=== PATIENT | male | born 1945 | race Caucasian/White ===

== ENCOUNTER → 2023-10-11 10:00 | Outpatient (REF) | payer MEDICARE, SELFPAY | LOC: CLAB 10:00 | PROVIDERS: ATTENDING PHYSICIAN Otolaryngology | DX: J32.4 Chronic pansinusitis (principal) | CPT/HCPCS: 88304 ==

== ENCOUNTER 2023-10-30 23:14 | Inpatient (IN) | payer MEDICARE, SELFPAY ==
[2023-10-30] VITALS (9 sets, daily range): BP systolic 131–150; BP diastolic 70–89; BMI 27.4
[2023-10-30 22:10] LABS: Glucose - Point of Care 100 mg/dl (70-99)
--- NOTE | 2023-10-30 22:19 | ED.GENMED ---
History of Present Illness
General
Chief Complaint: Numbness
Source: patient and ambulance crew
Exam Limitations: none
Time Seen by Provider: 10/30/23 22:11
Nursing documentation reviewed up to this point in time: agreed with
History of Present Illness
History of Present Illness:
78-year-old male presents with left facial weakness onset at 9 PM EMS was called brought here by evaluation with a left facial weakness he has a drift and weakness of his left arm and left leg no speech abnormality stroke alert was called blood
sugar was noted he takes gabapentin and Lamictal cannot tell me why, his bladder cancer gets in her bladder chemo last a few weeks ago not on any blood thinners
Past History
Past History
ED Past Medical History: Other (Hypercholesterolemia takes gabapentin Lamictal Remeron multivitamin omeprazole Mysoline simvastatin Flomax vitamin D clonazepam finasteride Flonase)
Social History
Tobacco: Non-smoker
Alcohol: None
Personal:
Phy Exam
Physical Exam
Physical Exam:
Physical Exam
General: no apparent distress, not acutely ill
Neck: No tongue bite
Heart: s1/s2 regular rate and rhythm, no murmur. equal radial pulses.
Lungs: no acute respiratory distress. clear bilaterally
Abdomen: Nontender
Neuro: alert and oriented. See NIH
Skin: no rash
Psychiatric: cooperative
Extremities: no edema.
Scores
NIH Stroke Score
Level of Consciousness: 0 - Alert
LOC Questions: 0-Answers both correctly
LOC Commands: 0-Performs both correctly
Best Horizontal Gaze: 0-Normal
Visual Kwok: 0=Normal, no visual loss
Facial Palsy: 0=Normal, symmetrical
Motor - Right Arm: 0=No drift 10 seconds
Motor - Left Arm: 2=Partial vs. gravity
Motor - Right Le-No drift 5 seconds
Motor - Left Le-Partial vs. gravity
Limb Ataxia: 1-Present in one limb
Sensation: 1-Mild loss
Best Language: 0-No aphasia
Dysarthria: 0-Normal
Extinction and Inattention: 0-No abnormality
Total Score:: 6
Course
Orders/Labs/Results
Orders:
Orders
10/30/23 22:11
CT Head W/o Cont STROKE ALERT Urgent
Comment:
Reason For Exam: keft sided weakness
CT Head/Neck Ang STROKE ALERT Urgent
Comment:
Reason For Exam: keft sided weakenss
Bedside Glucose- Treatment ONCE
Cardiac Monitoring- Treatment ONCE
10/30/23 22:12
Electrocardiogram (*1) Stat
Reason for Study: Other
Other Reason for Exam: neuro symptoms
EKG- Treatment ONCE
10/30/23 22:15
Complete Blood Count/With Diff Urgent
Comprehensive Metabolic Panel Urgent
Erythrocyte Sed Rate Urgent
PTT Urgent
Prothrombin Time Urgent
10/30/23 22:32
Tenecteplase [Tnkase] 20 mg Syringe [Syringe Non-Pump] 0 ml IV NOW
Provider explained risk/benefits to patient &/or caregiver?: Yes
Blood pressure: 136/74
Abnormal Lab Results
10/30/23 10/30/23
22:08 22:15
RBC 4.50 L 10^6/uL
(4.70-6.10)
Glucose 113 H mg/dl
(70-99)
POC Glucose 100 H mg/dl
(70-99)
10/30/23 22:15
10/30/23 22:15
Vital Signs
Initial and Last Documented VS:
Initial Vital Signs
Temp Pulse Resp BP Pulse Ox
98.6 F 77 18 136/74 95
10/30/23 22:02 10/30/23 22:02 10/30/23 22:02 10/30/23 22:02 10/30/23 22:02
Last Documented Vital Signs
Temp Pulse Resp BP Pulse Ox
98.6 F 64 23 136/74 97
10/30/23 22:02 10/30/23 22:15 10/30/23 22:15 10/30/23 22:05 10/30/23 22:15
MDM/Problems Addressed
Differential Diagnosis Includes:
Stroke seizure intracerebral hemorrhage Baldemar's paralysis
Chronic conditions affecting care: Psychiatric illness
Acute Exacerbation and/or Progression of Chronic Illness: Psychiatric illness
*Radiology
Radiology exam reviewed: other (Verbal from vision)
*Pulse Oximetry
Patient hypoxic: no
*EKG
Interpreted by ED Provider?: Yes
Interpretation: normal
Comparison EKG: no comparison EKG present
Heart Rate: 78
Rate: normal
Rhythm: sinus
Ischemia: non-specific ST changes
*Drafter Geophysical Interpretation
Rate: normal
Interpretation: normal
Heart Rate: 78
Rhythm: sinus
*Critical Care Note
Total Time (30-74mins, 75-104mins- exclusive of procedures): 32
Data Reviewed
Source: patient and ambulance crew
Update Note
Update Note:
Reviewed with neurology
CT reviewed with vision radiology no abnormality angiogram is pending
ED Attending Note
-
Portions of this chart may have been created with voice recognition software.� Occasional wrong word or��sound alike� substitutions may have occurred due to the inherent limitations of voice recognition software.
Discharge Plan
Departure
Patient Disposition: Admit
Date of Disposition: 10/30/23
Time of Disposition: 22:40
Admit to: ICU
Presentation/result/management discussed w/ accepting MD/DO: Hospitalist
Patient with high blood pressure during this ER visit?: No
Condition: Fair
Covid-19: Not Applicable
Discharge Problem:
Acute CVA (cerebrovascular accident)
Interventions
Interventions:
*Risk Screen - Suicide Last Done: 10/30/23 22:02
*General Assessment Last Done: 10/30/23 22:02
*Neglect/Abuse Screening Last Done: 10/30/23 22:02
ED- Fall Risk Assessment Last Done: 10/30/23 22:10
ED- Neurological Assessment Last Done: 10/30/23 22:10
Discharge Date and Time
Print Language: MOHAWK
[2023-10-30 22:23] LABS: % Basophils 0.6 % (0-2); % Eosinophils 4.4 % (0-6); % Immature Granulocytes 0.4 % (0-0.5); % Lymphocytes 28.2 % (20.5-51.1); % Monocytes 8.6 % (1.7-9.3); % Neutrophils 57.8 % (42.2-75.2); Absolute Eosinophils 0.2 10^3/uL (0-0.7); Absolute Lymphocytes 1.4 10^3/uL (1.2-3.4); Absolute Monocytes 0.4 10^3/uL (0.1-0.6); Absolute Neutrophils 2.8 10^3/uL (1.4-6.5); Hematocrit 39.6 % (39.0-52.0); Hemoglobin 13.9 g/dL (13.0-18.0); Mean Corp Hgb Conc. 35.1 g/dL (33.0-37.0); Mean Corpuscular Hgb 30.9 pg (27.0-31.0); Mean Platelet Volume 9.6 fL (7.4-10.4); Nucleated Red Blood Cells % 0 % (-); Platelet Count 158 10^3/uL (130-400); Red Cell Dist. Width 13.9 % (11.5-14.5); White Blood Cell Count 4.8 10^3/uL (4.8-10.8)
[2023-10-30 22:28] LABS: Erythrocyte Sed Rate 12 mm/hour (0-20)
[2023-10-30 22:32] LABS: INR 1.03; PT 13.3 Sec (11.4-14.6)
[2023-10-30 22:33] LABS: ALT (SGPT) 20 U/L (0-50); APTT 28.3 Sec (23.4-35.0); AST (SGOT) 28 U/L (17-59); Albumin 4.8 g/dl (3.5-5.0); Alkaline Phosphatase 89 U/L (38-126); Blood Urea Nitrogen 14 mg/dl (9-20); Calcium 9.5 mg/dl (8.4-10.2); Carbon Dioxide 25 mmol/L (22-30); Chloride 107 mmol/L (98-107); Glucose 113 mg/dl (70-99); Potassium 3.8 mmol/L (3.5-5.1); Sodium 140 mmol/L (135-145); Total Bilirubin 0.5 mg/dl (0.2-1.3)
[2023-10-30] MEDS: TNKASE 4 MG IV (22:45)
[2023-10-30 22:49] LABS: Estimated Creatinine Clearance 72 ml/min; Total Protein 6.8 g/dl (6.3-8.2); eGFR > 60.00
[2023-10-30] MEDS: FLUSH (NSS) 1 FLUSH IV (23:08)
--- NOTE | 2023-10-30 23:10 | W.PN.UPDATE ---
Update Note
Progress Note Update
I saw and examined the patient.
The PA's note was reviewed and I agree with the H&P dated 10/30/2023.
78yo M with PMH HLD, Bladder Ca on Intravesical Chemotherapy, BPH, GERD, Essential Tremor, Anxiety/Depression/Bipolar presents to ER with stroke like symptoms. Pt states around 8:30pm he went upstairs to do paperwork when he suddenly felt left
sided facial numbness. Symptoms expanded to his left hand and left leg with associated numbness/tingling and and mild weakness with a 'cold sensation' in his left arm. Denies history of strokes or seizures in past. Denies migraine headaches. Denies
recurrence in past. Denies fever, chills, recent ilness, cp, palps, wheezing, cough, sob, abd pain, n/v/d/c, dysuria, calf or leg pain.
ER course: Pt presents with BP 150/72 at peak, other V.S.S. Basic labs wnl. CT brain (-). CTA H/N: No LVO/LVS. S/P TNK in ER.
PMH: As above
SHx: Cholecystectomy, Sinus Surgery, Hiatal Hernia x 2, Inguinal Hernia b/l, TURBT
SocHx: Denies T/A/D.
Physical Exam:
Well appearing. Comfortable. Following commands
NCAT. MMM. Neck Supple
RRR, +S1/S2, No M/R/G
CTAB, no w/r/r
Soft/NT/ND, +BS
Pupils 3mm equal and reactive. No nystagmus. Tongue and uvula midline. Mild left facial droop. MSK LUE 4/5. MSK RUE 5/5. +LLE Drift. MSK LLE 3/5 MSK. MSK RLE 5/5.
AAOx3. Normal affect.
A/P:
Stroke Like Symptoms
- Pt presents to left facial numbness, sight left facial droop, Mild LLE>LUE weakness; onset around 8:30pm
- Risk factors include Bladder Ca and HLD
- CT brain and CTA H/N without acute findings
- S/P TNK. Admit to ICU
- Permissive HTN, Goal BP <180/105; prn labetalol.
- Q1h neurochecks
- MRI ordered
- Check Lipids/A1C. Increase statin to high intensity.
- Check TSH/B12/UA for completeness
- Neuro consult. PT/OT
HLD - Check Lipid panel. Increase statin to high intensity.
Urinary Retention - Bladder Scan +700cc. Straight cath and continue meds as below. Follow up UA.
Bladder Ca / BPH - Follows at [facility] receiving intravesical chemo 1x monthly, last received 10/19/2023. Pt known to Dr. Gloria. Continue finasteride/flomax.
GERD - PPI
Essential Tremor - Continue gabapentin and primidone.
Anxiety/Depression/Bipolar - Stable on home Remeron, Gabapentin, Lamictal, Lexapro, Klonipin
Code Status: Full Code
DVT PPx: SCDs, chemical ppx after 24 hrs.
Diet: Lipid Lowering
--- NOTE | 2023-10-30 23:24 | HPS.HSE ---
Addendum entered and electronically signed by Luca Conrad DO 10/31/23 06:37:
I saw and examined the patient.
The PAs's note was reviewed and I agree with plan as below; see Update Note dated 10/31/23 for attending attestation.
Original Note:
Family Physician
-
Family Physician: Baldemar Ralph MD
Chief Complaint
-
Left sided numbness
History of Present Illness
Patient is a 74 y/o male past medical history of hyperlipidemia, bipolar disorder and bladder cancer who presents with left sided numbness and weakness. Patient developed acute onset of left facial numbness around 9pm. Patient reports symptoms
worsened to include numbness of the left hand. He reports symptoms continued to worsened when he noted his whole left sided was feeling numb and felt weak. He denies any difficulty with speech. He denies prior history of stroke.
Medical History
Past Medical History
Past Medical History: Reports Other
Additional Past Medical History:
Hyperlipidemia
Anxiety/Bipolar
BPH
GERD
Essential Tremor
Bladder Cancer s/p TURBT, currently receiving intravesicle chemo
Past Surgical History: Reports Other
Additional Past Surgical History:
TURBT x 2
Cholecystectomy
Hernia Repair
Social History
Tobacco: Non-smoker
Alcohol: None
Personal:
Living: With Family
Family History
Family History: Not pertinent
Allergies / Home Medications
Allergies reflects when Allergies were last updated in [email or web address].
Home Medications with original date entered in [email or web address]
Allergy/Medication List:
Allergies
Allergy/AdvReac Type Severity Reaction Status Date / Time
sertraline [From Zoloft] AdvReac Increased Verified 10/30/23 23:18
Tremors /
EPS
Home Medications
cholecalciferol (vitamin D3) 25 mcg (1,000 unit) tablet (Vitamin D3) 25 mcg PO DAILY 10/30/23
clonazepam 0.5 mg tablet 0.25 mg PO BID 10/30/23
escitalopram oxalate 10 mg tablet 10 mg PO DAILY 10/30/23
finasteride 5 mg tablet 5 mg PO DAILY 10/30/23
fluticasone propionate 50 mcg/actuation nasal spray,suspension 2 spray intranasal Q12H 10/30/23
gabapentin 400 mg capsule 400 mg PO QID 10/30/23
lamotrigine 200 mg tablet 200 mg PO HS 10/30/23
mirtazapine 15 mg tablet 15 mg PO HS 10/30/23
multivitamin 1 tab PO DAILY 10/30/23
omeprazole 40 mg capsule,delayed release 40 mg PO DAILY 10/30/23
primidone 250 mg tablet 250 mg PO HS 10/30/23
simvastatin 20 mg tablet 20 mg PO HS 10/30/23
tamsulosin 0.4 mg capsule 0.4 mg PO BID 10/30/23
Review of Systems
-
A 12 point ROS was completed and negative except as noted: Yes
Constitutional: Denies Fever or Chills
Respiratory: Denies Cough or Trouble Breathing
Cardiac: Denies Chest Pain or Palpitations
Abdomen/GI: Denies Abdominal Pain, Nausea, Vomiting or Diarrhea
Physical Exam
Vital Signs
Vital Signs
Temp Pulse Resp BP Pulse Ox
98.6 F 65 19 131/89 95
10/30/23 22:02 10/30/23 23:15 10/30/23 23:15 10/30/23 23:15 10/30/23 23:00
Physical Exam
General: Comfortable and Conversant
HEENT: Anicteric and Moist mucous membranes
Respiratory: Clear and Non Labored Respirations
Cardiac: S1/S2 and Regular Rhythm
GI: Soft and Non Tender
Rectal: Deferred by Provider
Musculoskeletal: No Clubbing, No Cyanosis and No Edema
Skin: Warm and Dry
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
Laboratory Results
-
10/30/23 22:15
10/30/23 22:15
Laboratory Results
PT 13.3 Sec (11.4-14.6) 10/30/23 22:15
INR 1.03 10/30/23 22:15
APTT 28.3 Sec (23.4-35.0) 10/30/23 22:15
Total Bilirubin 0.5 mg/dl (0.2-1.3) 10/30/23 22:15
AST 28 U/L (17-59) 10/30/23 22:15
ALT 20 U/L (0-50) 10/30/23 22:15
Alkaline Phosphatase 89 U/L (38-126) 10/30/23 22:15
Data Reviewed
-
CT Scan: Report Reviewed by me
Lab Data: Labs Reviewed by me
Impression/Plan
-
Acute Left Sided Weakness, high clinical concern for Acute Stroke
-Admit to ICU post TNK
-Consult Neurology
-Check Brain MRI 24 hours post-TNK
-Continue TNK precautions
-Allow permissive hypertension with labetalol prn for BP >180/105
-Check FLP and HgbA1c
Urinary Retention
-Continue bladder scans with prn straight cath
-Continue tamsulosin and finasteride
Hyperlipidemia
-Increase statin to Lipitor 40mg
Anxiety/Bipolar Disorder
-Continue Clonazepam, lamotrigine, escitalopram and mirtazapine
GERD
-Continue Protonix
Essential Tremor
-Continue gabapentin and primidone
Bladder Cancer s/p TURBT, currently receiving intravesical chemo
DVT proph: SCDs
Code Status: Full Code
[2023-10-31] VITALS (42 sets, daily range): BP systolic 105–152; BP diastolic 54–82; BMI 27.2
[2023-10-31 00:07] LABS: Urine Albumin Negative (Neg - Trace); Urine Bilirubin Negative (Negative); Urine Character Clear (Clear); Urine Color Straw; Urine Glucose Negative (Negative); Urine Ketone Negative (Negative); Urine Leukocyte Negative (Negative); Urine Nitrite Negative (Negative); Urine Occult Blood Negative (Negative); Urine Urobilinogen Negative (Neg - 1+)
--- NOTE | 2023-10-31 01:36 | PTCARENOTE ---
Received pt to ICU 3370 from ED via stretcher. Pt. AAOx3, MELÉNDEZ but weak LUE and LLE (4/5 strength). Mild sensation loss to L face, LUE and LLE. Reports numbness in L side of face, which is unchanged from prior. Reports blurry vision in L eye when he
covers his R eye. NIH handoff w/ ED RN. NIH = 3. SR on tele, HR 50-60s. BP 140s/60s. + pulses, no edema. Afebrile. SCDs on. On RA, lungs CTA. Spo2 97%. + bowel sounds. Was straight cath'd in ED, urinal at bedside. Skin c/d/i. R W #20 and L AC #18
patent and capped. Monitoring closely
Family at bedside- questions answered
--- NOTE | 2023-10-31 04:58 | PTCARENOTE ---
30 minute neuro checks ongoing. Improvement noted in LUE and LLE strength- now 07/31. Pt. reports increased sensation, especially in L face and L face tingling is improving. Pt. in good spirits. Has not slept all night. Resting now. Labs drawn
[2023-10-31 05:00] LABS: Hematocrit 34.3 % (39.0-52.0); Hemoglobin 12.2 g/dL (13.0-18.0); Mean Corp Hgb Conc. 35.6 g/dL (33.0-37.0); Mean Corpuscular Hgb 31.1 pg (27.0-31.0); Mean Corpuscular Volume 87.5 fL (80.0-94.0); Mean Platelet Volume 10.2 fL (7.4-10.4); Platelet Count 143 10^3/uL (130-400); Red Blood Cell Count 3.92 10^6/uL (4.70-6.10); White Blood Cell Count 4.6 10^3/uL (4.8-10.8)
[2023-10-31 05:15] LABS: INR 1.05; PT 13.5 Sec (11.4-14.6)
[2023-10-31 05:16] LABS: APTT 29.2 Sec (23.4-35.0)
[2023-10-31 05:38] LABS: Blood Urea Nitrogen 14 mg/dl (9-20); Calcium 9.1 mg/dl (8.4-10.2); Carbon Dioxide 24 mmol/L (22-30); Chloride 106 mmol/L (98-107); Estimated Creatinine Clearance 83 ml/min; Glucose 94 mg/dl (70-99); HDL Cholesterol 50 mg/dl; LDL Cholesterol, Calculated 88 mg/dl; Magnesium 2.1 mg/dl (1.6-2.3); Phosphorus 4.2 mg/dl (2.5-4.5); Sodium 139 mmol/L (135-145); Total Cholesterol 154 mg/dl (50-199); Triglyceride 84 mg/dl (10-149); Very Low Density Lipoprotein 16 mg/dl (0-30); eGFR > 60.00
--- NOTE | 2023-10-31 05:59 | PTCARENOTE ---
Pt unable to void while laying in bed. Bladder scan = 745ml. HERSON Rush notified.. stated OK to sit at side of bed to try to void. 2 RNs assisted pt. to side of bed but he was still unable to void. Straight cath'd for 700ml yellow urine. Strength
5/5 throughout. Reports sensation is now equal B/L except his L side of face remains with some tingling. Otherwise, without complaints.
[2023-10-31 06:07] LABS: TSH Reflex To Free T4 1.23 uIU/ml (0.47-4.68)
[2023-10-31 06:26] LABS: Vitamin B12 657 pg/ml (239-931)
--- NOTE | 2023-10-31 08:18 | W.PN.HOSP.TC ---
Addendum entered and electronically signed by Raymond Barragan MD 10/31/23 20:51:
Attending Addendum-
I saw and evaluated the patient. I reviewed the resident�s note and agree with findings and plan as documented in the resident�s note. Sub: Feels improved. Still with tingling sensation on left side of face and left hand. Weakness improved.Full 12
point ROS reviewed and negative except as documented Exam: Vitals reviewed in chart GEN-NADheart RRR lungs clear abd soft LE no edema Neuro 4/5 LUE 5/5 al others no cerebellar deficits right tongue deviation on protrusion right sided slight facial
droop
Plan:
# Acute Right CVA
-Admitted to ICU post TNK
-Consult Neurology
-Check Brain MRI 24 hours post-TNK
-Continue TNK precautions
-Allow permissive hypertension with labetalol prn for BP >180/105 x 24 hours
-high intensity statin
-PT OT Speech and PMnR evals
-check echo
# Urinary Retention
-Continue bladder scans with prn straight cath
-Continue tamsulosin and finasteride
# Hyperlipidemia
-Increase statin to Lipitor 80mg
# Anxiety/Depression
-cont escitalopram and mirtazapine
-continue Clonazepam 0.25mg PO BID- PDMP verified
#Bipolar Disorder
- cont lamotrigine
#GERD
-Continue Protonix
#Essential Tremor
-Continue gabapentin and primidone
#Bladder Cancer s/p TURBT, currently receiving intravesical chemo
DVT proph: SCDs
Code Status: Full Code
Time spent coordinating care, review of plan of care with resident, personally reviewed records in EMR, med rec, consults, notes, labs, radiology, d/w nursing � 59 mins
Original Note:
Today's Communication/Plan
-
.
Assessment / Plan
Assessment / Plan
Patient is a 74 y/o male past medical history of hyperlipidemia, bipolar disorder and bladder cancer who presents with left sided numbness and weakness.
Acute left-sided weakness secondary to stroke
-Currently in ICU post TNK
� Consult nephrology. Appreciate inputs
� Check brain MRI tonight 24 hours post TNK
� Continue TNK precautions
-Echo ordered. Pending results
� Allow permissive hypertension with labetalol for BP greater than 180/105
� FLP and hemoglobin A1c checked. Atorvastatin 80 mg started
�Speech consulted. Appreciate input
Urinary retention
� Continue bladder scans with as needed straight cath
-Continue tamsulosin and finasteride
Hyperlipidemia
� Increase statin to Lipitor 80 mg
Anxiety/bipolar disorder
� Continue clonazepam, escitalopram
GERD
� Continue Protonix
Essential tremor
� Continue gabapentin, primidone, lamotrigine
Bladder cancer
� Status post TURBT
-Continue mirtazapine
� Currently receiving intravesicular chemo
Recent sinus sx
- Administer saline spray BID for relief
DVT prophylaxis�SCDs
Full code
Anticipated Discharge: 24 - 48 hours
Subjective/Interval History
-
Date of Service: October 31, 2023
Patient is a 74 y/o male past medical history of hyperlipidemia, bipolar disorder and bladder cancer who presents with left sided numbness and weakness. Patient reports that he was paying some bills when he started feeling weakness on the left
side. His noted that he was not smiling. 911 was called and he was brought to the hospital. Overnight he was given TNK for acute stroke. Since admission he reports feeling stronger, regaining 90% of his strength. He is having difficulty
voiding on his own and has been getting straight cath. He reports no headaches, nausea, vomiting, diarrhea, abdominal pain, extremity pain or any new acute symptoms.
Objective Data
-
Labs:
Laboratory Results
10/30/23 10/31/23
22:15 03:58
WBC 4.8 4.6 L
Hgb 13.9 12.2 L
Hct 39.6 34.3 L
Plt Count 158 143
PT 13.3 13.5
INR 1.03 1.05
APTT 28.3 29.2
Sodium 140 139
Potassium 3.8 4.0
Chloride 107 106
Carbon Dioxide 25 24
BUN 14 14
Creatinine 0.8 0.7
Glucose 113 H 94
Calcium 9.5 9.1
Total Bilirubin 0.5
AST 28
ALT 20
Alkaline Phosphatase 89
Vital Signs:
Vital Signs
Temp Pulse Resp BP Pulse Ox
96.9 F L 57 17 124/66 94
10/31/23 07:25 10/31/23 07:00 10/31/23 07:00 10/31/23 07:00 10/31/23 07:00
I&O
10/30/23 10/31/23 11/01/23
06:59 06:59 06:59
Output Total 700 / 700
Balance -700 / -700
Review of Systems
-
History Source: Patient
Constitutional: Reports No Symptoms
EENT: Reports No Symptoms Reported
Respiratory: Reports No Symptoms
Cardiac: Reports No Symptoms
Abdomen/GI: Reports No Symptoms
Genitourinary: Reports Difficulty Voiding
Musculoskeletal: Reports Other (Left-sided weakness, mild)
Skin: Reports No Symptoms
Neuro: Reports Other (Left-sided weakness)
Physical Exam
-
General: Well Developed, Well Nourished, No Apparent Distress and Comfortable
HEENT: Normocephalic and Atraumatic
Respiratory: Clear to Auscultation
Cardiac: Murmur
GI: Soft, Nontender, Normal Bowel Sounds and Distended
Musculoskeletal: No Clubbing, No Cyanosis and No Edema
Skin: Warm and Dry
Neuro: AO x 3, Tremors and Other (Right-sided tongue deviation)
Psych: Calm
Data Reviewed
-
Total Time Spent with Patient (in minutes): 30
CT Scan: Report Reviewed by me and Discussed with Physician
Labs: Labs Reviewed by me and Discussed with Physician
Old Records: Reviewed
[2023-10-31] MEDS: FLOMAX 0.4 MG PO ×2 (08:19→19:47)
[2023-10-31] MEDS: KLONOPIN 0.25 MG PO ×2 (08:19→19:49)
[2023-10-31] MEDS: PROSCAR 5 MG PO (08:19)
[2023-10-31] MEDS: PROTONIX 40 MG PO (08:19)
[2023-10-31] MEDS: NEURONTIN 400 MG PO ×4 (08:19→20:59)
[2023-10-31] MEDS: LEXAPRO 10 MG PO (08:19)
--- NOTE | 2023-10-31 08:57 | CON.NEURO ---
Neuro Assessment/Plan
Assessment
Abrupt onset of acute ischemic stroke
Most likely due to thromboembolism to right-sided anterior circulation
Plan
Recommendations:
� administered IV Tenecteplase (TNK) per protocol urgently while keeping patient's blood pressure to a goal of systolic less than 185 and diastolic less than 110 mmHg during infusion of TNK
� placed the patient in medical ICU
� goal blood pressure over the next 24 hours after TNK would be less than 180/105 mmHg, then normotension
� check MRI of the brain without contrast for localization of the stroke
� hold all antiplatelets, OAC meds, DOAC meds, heparinoids for next 24 hours after TNK
start aspirin 81 mg 24 hours after TNK use
� start atorvastatin 80 mg at bedtime when patient is able to take PO
� goal blood glucose levels for patient would be less than 180 mg/dL
� Speech, PT, OT evaluations needed
� Physiatry consultation warranted
� DVT prophylaxis with sequential compression devices over next 24 hours, can be started on Enoxaparin subcutaneous for DVT prophylaxis beginning 24 hours after TNK provision.
� medical educational materials will be provided
eventual consideration for MRI guided-focused ultrasound for essential tremor
continue Primidone, Lamotrigine, Gabapentin for control over tremor
consider urology consultation due to acute return of bladder dysfunction
Total Critical Care Time= 60 minutes.
The neurological system is affected and the action required by me to prevent further deterioration or potential was control over the item listed first in the Impressions and Recommendations section of this note.
I was present and personally examined the patient. I discussed patient care with other professional health care providers.
We will follow.
Consultation
Order
Date of Consultation: 10/31/23
Requesting Provider: Hospitalists
Reason for Consult: Left-sided weakness
Subjective/Objective
Subjective Data
Date of Service: October 31, 2023
Right-Handed
Patient presented with acute onset left-sided weakness as well as left arm and leg weakness beginning at 2100 hrs. yesterday while walking. Progressive weakness then took place. No associated symptoms except for generalized fatigue, left eyelid
weakness, and tingling in fingers. No prior symptoms which were similar, no known modifying factors.
Patient was subsequently provided with tenecteplase and admitted to the hospital's intensive care unit. Has had improved eyelid weakness and strength improvement. Continued left facial sensation change. New return of urinary dysfunction since
presentation.
Patient with multiple medications used for control over familial essential tremor.
Objective Data
Vital Signs
Temp Pulse Resp BP Pulse Ox
36.1 C L 62 18 123/60 94
10/31/23 07:25 10/31/23 08:30 10/31/23 08:30 10/31/23 08:30 10/31/23 08:30
Lab Results
10/31/23 03:58
10/31/23 03:58
PT 13.5 Sec (11.4-14.6) 10/31/23 03:58
INR 1.05 10/31/23 03:58
APTT 29.2 Sec (23.4-35.0) 10/31/23 03:58
Sodium 139 mmol/L (135-145) 10/31/23 03:58
Potassium 4.0 mmol/L (3.5-5.1) 10/31/23 03:58
BUN 14 mg/dl (9-20) 10/31/23 03:58
Glucose 94 mg/dl (70-99) 10/31/23 03:58
Calcium 9.1 mg/dl (8.4-10.2) 10/31/23 03:58
Phosphorus 4.2 mg/dl (2.5-4.5) 10/31/23 03:58
LDL Cholesterol, Calc 88 mg/dl 10/31/23 03:58
Vitamin B12 657 pg/ml (239-931) 10/31/23 03:58
Patient Allergies
sertraline [From Zoloft] Adverse Reaction (Verified 10/30/23 23:18)
Increased Tremors / EPS
CVA Assessment
Onset of Stroke Symptoms
Onset of symptoms known: Yes
Date of onset of symptoms: 10/30/23
Time of onset of symptoms: 21:00
Time pt last seen normal is known: Yes
Date last time pt seen normal: 10/30/23
Time last time pt seen normal: 21:00
NIH Stroke Score
Level of Consciousness: 0 - Alert
LOC Questions: 0-Answers both correctly
LOC Commands: 0-Performs both correctly
Best Horizontal Gaze: 0-Normal
Visual Kwok: 0=Normal, no visual loss
Facial Palsy: 0=Normal, symmetrical
Motor - Right Arm: 0=No drift 10 seconds
Motor - Left Arm: 0=No drift 10 seconds
Motor - Right Le-No drift 5 seconds
Motor - Left Le-No drift 5 seconds
Limb Ataxia: 0-Absent
Sensation: 0-Normal
Best Language: 0-No aphasia
Dysarthria: 0-Normal
Extinction and Inattention: 0-No abnormality
Total Score:: 0
Tenecteplase Contraindications
Inclusion and Exclusion criteria reviewed: Yes
IAT Contraindications: Imaging doesn't show large vessel occlusion as cause of stroke
Review of Systems
-
History Source: Patient
All other systems: Reviewed and negative
EENT: Other (speech garbled at presentation); Negative Swallowing Difficulty
Respiratory: Negative Trouble Breathing
Cardiac: Negative Chest Pain
Abdomen/GI: Negative Incontinence of Stool
Genitourinary: Difficulty Voiding
Musculoskeletal: Negative Back Pain or Neck Pain
Neuro: Dizzy; Negative Headache
Physical Exam
-
General: No Apparent Distress and Appears Stated Age
Eyes: OU Absent Papilledema, Able to visualize OU, Round OU, [place] Conjunctivae and No Ptosis
HEENT: Anicteric and Moist Mucous Membranes
Neck: Full Range of Motion
Respiratory: No Dyspnea
Cardiac: No JVD
GI: Non-distended
Skin: Unremarkable
Extremities: No Clubbing, No Cyanosis and No Edema
Psych: Intact Judgement/Insight
Extended Neurological Exam
Mood & Affect: Mood Unremarkable and Affect Unremarkable
Attention Span & Concentration: Awake, Alert, Interactive and No Difficulty with 2 Step Request
Memory: Unremarkable
Tremor: Hand Tremor Absent and Head Tremor Absent
Speech: Quality Unremarkable and Quantity Unremarkable
Cranial Nerve II: Left Eye: Pupillary Reactivity Unremarkable, Pupillary Size Unremarkable and Visual Kwok Intact
Cranial Nerve II: Right Eye: Pupillary Reactivity Unremarkable, Pupillary Size Unremarkable and Visual Kwok Intact
Cranial Nerves III, IV, : Extraocular Movement: Extraocular Movement Full in all Directions and Ptosis on Left (minimal and fleeting)
Cranial Nerve VII: Facial Symmetry: Normal Facial Symmetry
Cranial Nerve VIII: Hearing: Unremarkable Hearing to Normal Conversational Volume
Cranial Nerves IX, X: Palate Movement: Palate Elevation Symmetric
Cranial Nerve XI: Shoulder Shrug: Unremarkable
Cranial Nerve XII: Tongue Protusion: Midline
Muscle Strength, Overall: Full Throughout
Muscle Bulk & Tone: Bulk Unremarkable and Tone Unremarkable
Pronator Drift: No Drift in Upper Extremities
Deep Tendon Reflexes: Unremarkable Throughout
Touch Sensation: Unremarkable
Coordination: Wyiszt-meso-krredx Testing Unremarkable
Babinski Sign: Absent Bilaterally
Data Reviewed
-
CT-A: Report Reviewed and Image Reviewed
CT Head: Report Reviewed and Image Reviewed
Labs: Report Reviewed
Reviewed with: Physician, Nurse and Patient
Old Records: Summarized
Medications
-
Active Medications
Generic Name Dose Route Start Last Admin
Trade Name Freq PRN Reason Stop Dose Admin
Acetaminophen 650 mg 10/31/23 00:22
Acetaminophen 325 Mg Tablet PO 11/28/23 00:21
Q4HPRN PRN
RODRIGUEZ, mild pain, or temp >100.4F
Atorvastatin Calcium 40 mg 10/31/23 18:00
Atorvastatin (Lipitor) 40 Mg Tablet PO 11/28/23 17:59
QPM BRANDY
Clonazepam 0.25 mg 10/31/23 08:00 10/31/23 08:19
Clonazepam 0.5 Mg Tablet PO 11/28/23 07:59 0.25 mg
BID BRANDY Administration
Escitalopram Oxalate 10 mg 10/31/23 08:00 10/31/23 08:19
Escitalopram 10 Mg Tablet PO 11/28/23 07:59 10 mg
DAILY BRANDY Administration
Finasteride 5 mg 10/31/23 08:00 10/31/23 08:19
Finasteride 5 Mg Tablet PO 11/28/23 07:59 5 mg
DAILY BRANDY Administration
Gabapentin 400 mg 10/31/23 08:00 10/31/23 08:19
Gabapentin 400 Mg Capsule PO 11/28/23 07:59 400 mg
QID BRANDY Administration
Labetalol HCl 10 mg 10/31/23 00:22
Labetalol Hcl 5 Mg/1 Ml (20 Mg/4 Ml) Injection IV 11/28/23 00:21
Q6HPRN PRN
SBP >180 or DBP>105
Lamotrigine 200 mg 10/31/23 22:00
Lamotrigine 100 Mg Tablet PO 11/28/23 21:59
HS BRANDY
Mirtazapine 15 mg 10/31/23 22:00
Mirtazapine 15 Mg Regular Release Tablet PO 11/28/23 21:59
HS BRANDY
Pantoprazole Sodium 40 mg 10/31/23 08:00 10/31/23 08:19
Pantoprazole 40 Mg Delayed Release Tablet PO 11/28/23 07:59 40 mg
DAILY BRANDY Administration
Primidone 250 mg 10/31/23 22:00
Primidone 250 Mg Tablet PO 11/28/23 21:59
HS BRANDY
Sodium Chloride 0 flush 10/30/23 23:00 10/30/23 23:08
Sodium Chloride 0.9% (Flush) Syringe IV 11/27/23 22:59 1 flush
PER PROTOCOL BRANDY Administration
Tamsulosin HCl 0.4 mg 10/31/23 08:00 10/31/23 08:19
Tamsulosin 0.4 Mg Capsule PO 11/28/23 07:59 0.4 mg
BID BRANDY Administration
Home Medications
�Medication �Instructions �Recorded
cholecalciferol (vitamin D3) 25 25 mcg PO DAILY 10/30/23
mcg (1,000 unit) tablet (Vitamin
D3)
clonazepam 0.5 mg tablet 0.25 mg PO BID 10/30/23
escitalopram oxalate 10 mg tablet 10 mg PO DAILY 10/30/23
finasteride 5 mg tablet 5 mg PO DAILY 10/30/23
fluticasone propionate 50 2 spray intranasal Q12H 10/30/23
mcg/actuation nasal
spray,suspension
gabapentin 400 mg capsule 400 mg PO QID 10/30/23
lamotrigine 200 mg tablet 200 mg PO HS 10/30/23
mirtazapine 15 mg tablet 15 mg PO HS 10/30/23
multivitamin 1 tab PO DAILY 10/30/23
omeprazole 40 mg capsule,delayed 40 mg PO DAILY 10/30/23
release
primidone 250 mg tablet 250 mg PO HS 10/30/23
simvastatin 20 mg tablet 20 mg PO HS 10/30/23
tamsulosin 0.4 mg capsule 0.4 mg PO BID 10/30/23
Past History
Past History
ED Past Medical History: Cancer (bladder), GERD, Hypercholesterolemia and Other (BPH, essential tremor, gastroparesis, colonic polyposis)
ED Past Surgical History: Cholecystectomy, Urological (bladder surgery) and Other (Herniorrhaphy)
Social History
Tobacco: Non-smoker
Alcohol: None
Personal:
Family History
Family History: Other (Reviewed and noncontributory)
--- NOTE | 2023-10-31 09:10 | CON.INTV ---
Consultation
Consultation Request
Date/Time Consultation Requested: 10/31/202321
Date/Time Consultation Performed: 10/31/2023849
Requesting Provider: Yue Urias PA-C
Performing Provider: Dr. Castillo
Reason for Consultation: s/p TNK
Medical History
-
Chief Complaint: Left-sided facial numbness/droop
History of Present Illness:
78-year-old male non-smoker with a past medical history of bladder cancer on monthly intravesicular chemotherapy managed at [facility], anxiety, history of bipolar disorder, GERD, BPH, hyperlipidemia, essential tremor, and history of
colon polyps who presents with left-sided facial numbness with left facial droop beginning at 9 PM prior to arrival. 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 After coming home he felt
tired/strange so started to do things in his office when he suddenly became unstable and lay down. His face felt flushed with [id number] on the left side and he called his who noticed a left-sided facial droop and difficulty opening left
eye. He denies having any arm or leg weakness. No headache. EMS called. In the ER patient was afebrile to 98.6 �F, pulse rate 77, breathing at 18 breaths/min, BP 136/74 and saturating 95% on room air. Labs showed WBC 4.8, Hb 13.9, INR 1.03,
glucose 113, UA negative for signs of UTI. Code stroke called and CT head showed no acute intracranial hemorrhage. CTA head/neck obtained showing no LVO, with bilateral intracranial ICA atherosclerosis without significant stenosis, with
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 CTA neck showed no significant stenosis. Neurology consulted and given concern of acute ischemic stroke, TNK
was administered. Patient transferred to the ICU for further care and critical care services consulted for additional management/recommendations.
When I saw the patient this morning he said he still has left-sided facial numbness although it is improving. He is able to open up his left eye fully and says that that is no longer an issue. He still feels that he can open up his left side of
his mouth fully. BP 132/67, heart rate 58 and saturating 96% on room air. He denies headache, shortness of breath, chest pain, abdominal pain, fevers or chills.
PMHx: Anxiety, BPH, GERD, paraesophageal hernia, hyperlipidemia, essential tremor, history of gastroparesis, GERD, history of colon polyps, history of bladder cancer s/p TURBT on monthly intravesicular chemotherapy managed at [facility], history of
bipolar disorder
PSHx: Cholecystectomy, hernia repair, TURBT
Past Medical History
Past Medical History: Other (Above as per HPI)
Past Surgical History: Other (Above as per HPI)
Social History
Tobacco: Non-smoker
Alcohol: None
Drug: None
Personal:
Living: With Family
Family History
Family History: Cancer (Father: Lung cancer)
Allergies / Home Medications
Allergies
Allergy/AdvReac Type Severity Reaction Status Date / Time
sertraline [From Zoloft] AdvReac Increased Verified 10/30/23 23:18
Tremors /
EPS
Home Medications
�Medication �Instructions �Recorded �Confirmed �Last Taken �Type
cholecalciferol (vitamin D3) 25 25 mcg PO DAILY Supplement 10/30/23 10/30/23 Unknown History
mcg (1,000 unit) tablet (Vitamin
D3)
clonazepam 0.5 mg tablet 0.25 mg PO BID Anxiety 10/30/23 10/30/23 Unknown History
escitalopram oxalate 10 mg tablet 10 mg PO DAILY Depression 10/30/23 10/30/23 Unknown History
finasteride 5 mg tablet 5 mg PO DAILY BPH 10/30/23 10/30/23 Unknown History
fluticasone propionate 50 2 spray intranasal Q12H Allergies 10/30/23 10/30/23 Unknown History
mcg/actuation nasal
spray,suspension
gabapentin 400 mg capsule 400 mg PO QID Neurological 10/30/23 10/30/23 Unknown History
Condition
lamotrigine 200 mg tablet 200 mg PO HS Seizures 10/30/23 10/30/23 Unknown History
mirtazapine 15 mg tablet 15 mg PO HS Depression 10/30/23 10/30/23 Unknown History
multivitamin 1 tab PO DAILY Supplement 10/30/23 10/30/23 Unknown History
omeprazole 40 mg capsule,delayed 40 mg PO DAILY Gastrointestinal 10/30/23 10/30/23 Unknown History
release Issue
primidone 250 mg tablet 250 mg PO HS Seizures 10/30/23 10/30/23 Unknown History
simvastatin 20 mg tablet 20 mg PO HS High Cholesterol 10/30/23 10/30/23 Unknown History
tamsulosin 0.4 mg capsule 0.4 mg PO BID Urinary Issue 10/30/23 10/30/23 Unknown History
Review of Systems
-
History Source: Patient
All other systems: Negative unless noted
Vitals / Labs / Diagnostic Testing
Vital Signs
Temp Pulse Resp BP Pulse Ox
96.9 F L 68 20 118/80 96
10/31/23 07:25 10/31/23 11:00 10/31/23 11:00 10/31/23 11:00 10/31/23 11:00
Lab Data
10/31/23 03:58
10/31/23 03:58
Laboratory Results
10/30/23 10/31/23
22:15 03:58
PT 13.3 13.5
INR 1.03 1.05
APTT 28.3 29.2
Diagnostic Testing:
Physical Exam
-
HEENT: Normocephalic and Anicteric
Cardiovascular: S1/S2 and Peripheral Edema (negative)
Respiratory: Wheeze (negative), Rales (Bibasilar (L >R)), Rhonchi (negative) and Non-Labored Respirations
GI: Soft, Non Distended, Non Tender and Normal Bowel Sounds
Neurology: AO x 3, No Motor Deficits (Family Support Coordinator strength 5/5 in both hands; foot plantar-/dorsi-flexion: 5/5 bilaterally), Tremors (negative) and Other (Slight flattening of left nasolabial fold; No sensory deficits to light touch in arms, legs or face;
normal tongue protrusion and lateral movement; normal shoulder shrug; pupils 3-4 mm and brisk; normal H test)
Skin: Warm and Dry
General: Respiratory Distress (negative), Comfortable, Fever (negative) and Chills (negative)
Assessment
-
Assessment: 78-year-old male non-smoker with a past medical history of bladder cancer on monthly intravesicular chemotherapy managed at [facility], anxiety, history of bipolar disorder, GERD, BPH, hyperlipidemia, essential tremor, and
history of colon polyps who presents with left-sided facial numbness with left facial droop beginning at 9 PM prior to arrival. 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 After coming home he felt
tired/strange so started to do things in his office when he suddenly became unstable and lay down. His face felt flushed with [id number] on the left side and he called his who noticed a left-sided facial droop and difficulty opening left
eye. He denies having any arm or leg weakness. No headache. EMS called. In the ER patient was afebrile to 98.6 �F, pulse rate 77, breathing at 18 breaths/min, BP 136/74 and saturating 95% on room air. Labs showed WBC 4.8, Hb 13.9, INR 1.03,
glucose 113, UA negative for signs of UTI. Code stroke called and CT head showed no acute intracranial hemorrhage. CTA head/neck obtained showing no LVO, with bilateral intracranial ICA atherosclerosis without significant stenosis, with
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 CTA neck showed no significant stenosis. Neurology consulted and given concern of acute ischemic stroke, TNK
was administered. Patient transferred to the ICU for further care and critical care services consulted for additional management/recommendations.
Chronic conditions C ARCHITECT: Anxiety, BPH, GERD, paraesophageal hernia, hyperlipidemia, essential tremor, history of gastroparesis, GERD, history of colon polyps, history of bladder cancer s/p TURBT on monthly intravesicular chemotherapy managed at [facility], history of bipolar disorder
Impression:
#Suspected right sided acute ischemic stroke s/p TNK (administered 10/30/2023 at 2245)
#Mild anemia (Hb 12.2 today)
#Leukopenia (WBC: 4.6 today)
#GERD
#Anxiety
#Bladder cancer s/p TURBT on monthly intravesicular chemotherapy managed at [facility]
Plan:
- q1hr neurochecks with NIHSS; maintain BP <180/105
- Neurology consulted and recommendations appreciated
- Stat CT head for any change in neurochecks or clinical status
- HOB flat x 24 hrs
- MRI brain tomorrow
- Hold anticoagulation/antiplatelets until at least 24 hours s/p TNK; start antiplatelet therapy after TNK, defer monotherapy vs dual platelet to neurology
- Maintain euglycemia with goal BG 140�180
- Bedside nursing swallow evaluation; TAPING SUPERVISOR evaluation prior to PO diet
- High intensity statin with goal LDL <70
- PT/OT
- Continue with primidone, Neurontin, Lamictal and Remeron (all home meds)
- Maintain SpO2 >92-94%
- prn nebulized bronchodilators
- Maintain MAP>65
- Trend Hb and transfuse if needed to maintain Hb >7 g/dL; keep platelets >100k
- Replete electrolytes with K>4, Mg>2
- Incentive spirometer
- DVT ppx
Code status: Full code
Critical care statement: A total of 40 minutes of critical care time was provided for this patient today. This includes management of unstable vital signs, evaluation of the patient at bedside, reviewing the patient's pertinent medical records
including radiographs, microbiology, laboratory evaluations, and discussion with primary team, consultants, pharmacy, nutrition, physical therapy, case management, charge nurse, critical care nursing, and respiratory therapy.
Data:
CT head 10/30/2023:
No acute intracranial hemorrhage.
Sequelae of chronic small vessel ischemic disease.
Postoperative changes of the paranasal sinuses with mild/moderate residual mucosal thickening.
CTA head/neck 10/30/2023:
CTA Head: No large vessel occlusion. Atherosclerotic calcifications of the bilateral intracranial ICAs without significant stenosis. Nonopacification of the right transverse sinus with diminutive appearance of the right sigmoid sinus possibly due to
agenesis/hypoplasia.
CTA Neck: Atherosclerotic calcifications of the bilateral carotid bifurcations without significant stenosis.
CXR 10/31/2023:
Low lung volumes with mild elevation of the left hemidiaphragm and bibasilar atelectasis.
--- NOTE | 2023-10-31 09:15 | PTCARENOTE ---
Rec'd pt at 0700. Pt AAOx3, follows commands, MELÉNDEZ with equal strength, no drift noted to any extremity. NIHSS-1 for decreased sensation to left side of face, completed at bedside with nightshift RN during handoff. Monitor SBR. Lungs CTA. +BS, abd
soft/nt.
--- NOTE | 2023-10-31 10:11 | PTCARENOTE ---
Pt stated he had the urge to void, stood at bedside with 2 staff members present. Pt unable to void. Bladder scanned for 521ml, straight cath performed for approx 500ml yellow urine.
--- NOTE | 2023-10-31 10:46 | CM ---
CM following re: discharge planning.
Reviewed pt's chart, met with pt.
Pt is a 78 year old male, admitted with primary dx of Left sided numbness. Neurology following, to MRI today.
Pt reports he lives with spouse in a 2SH, 2 steps to enter, has 3 supportive children. 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 No DME, VN or SNF history. Pt feels he will be able to return back home with most likely outpatient therapy
if recommended.
PT, OT, ST will evaluate to determine a level of care at discharge.
PCP: Baldemar Ralph
[facility]
D/C plan: most likely home with outpatient therapy. Family to transport at discharge.
CM will follow with discharge plan updates as hospitalization progresses
[2023-10-31 10:58] LABS: Glycohemoglobin (HgbA1c) 5.7 % (4.0-5.6)
--- NOTE | 2023-10-31 12:08 | PTOTSP ---
Speech Language Pathology Evaluation
78M with admission for CVA workup 2/2 left sided facial weakness p/w a functional oropharyngeal swallow. Silent aspiration cannot be ruled out at this point in time. Aspiration risk is increased 2/2 L sided facial weakness, vocal hoarseness, and pt
endorsement of prior swallowing difficulties related to sinuses.
Brain MRI planned for tomorrow 10/31, speech to follow.
Recommend:
1. Regular solids, thin liquids
2. Medications as tolerated
3. Aspiration and reflux precautions
4. Speech pathology to follow up at the acute care level and assess diet tolerance pending brain MRI results.
--- NOTE | 2023-10-31 15:38 | PTCARENOTE ---
No changes in physical assessment. Pt again stood at bedside in attempt to void with staff assistance, unable. Bladder scanned for >989. MD notified and mcguire placed.
[2023-10-31] MEDS: LIPITOR 80 MG PO (17:26)
--- NOTE | 2023-10-31 20:07 | PTCARENOTE ---
Received pt resting in bed. NIH handoff completed with angelika RN. NIH = 1 for mild sensation loss on L side of face. Extremities 5/5 strength B/L. AAOx3. NSR on tele. BP 120s/60s. Afebrile. On RA, spo2 96%. Lungs CTA. + bowel sounds. Had BM on
bedpan at change of shift. Degroot cath in for retention, draining clear yellow urine. Call jean-baptiste in reach, family visiting at bedside.
[2023-10-31] MEDS: MYSOLINE 250 MG PO (20:59)
[2023-10-31] MEDS: LAMICTAL 150 MG PO (20:59)
[2023-10-31] MEDS: REMERON 15 MG PO (20:59)
[2023-11-01] VITALS (16 sets, daily range): BP systolic 92–151; BP diastolic 54–102; PULSE 57; BMI 26.2
--- NOTE | 2023-11-01 | PTCARENOTE ---
No changes in assessment. Pt resting. Degroot care provided
[2023-11-01 03:32] LABS: Hemoglobin 12.3 g/dL (13.0-18.0); Mean Corp Hgb Conc. 36.2 g/dL (33.0-37.0); Mean Corpuscular Hgb 31.2 pg (27.0-31.0); Mean Corpuscular Volume 86.3 fL (80.0-94.0); Mean Platelet Volume 9.7 fL (7.4-10.4); Platelet Count 160 10^3/uL (130-400); Red Blood Cell Count 3.94 10^6/uL (4.70-6.10); Red Cell Dist. Width 13.8 % (11.5-14.5); White Blood Cell Count 5.6 10^3/uL (4.8-10.8)
[2023-11-01 03:50] LABS: Blood Urea Nitrogen 14 mg/dl (9-20); Calcium 9.4 mg/dl (8.4-10.2); Carbon Dioxide 26 mmol/L (22-30); Chloride 106 mmol/L (98-107); Estimated Creatinine Clearance 72 ml/min; Glucose 106 mg/dl (70-99); Potassium 4.2 mmol/L (3.5-5.1); Sodium 137 mmol/L (135-145); eGFR > 60.00
--- NOTE | 2023-11-01 07:14 | PTCARENOTE ---
Pt transported to MRI without issue. Returned to bed, handoff completed with dayshift RN. Pt. feeling well, no complaints.
--- NOTE | 2023-11-01 07:58 | W.PN.HOSP.TC ---
Addendum entered and electronically signed by Rudy Rosenbaum MD 11/01/23 15:28:
I saw and evaluated the patient. I reviewed the resident�s note and agree with findings and plan as documented in the resident�s note.
1. Presumed TIA episode
Denies of having any persistent left-sided weakness at this point.
MRI brain without contrast did not show any acute abnormality. Showing signs of small vessel ischemic disease
CTA admission rule out any critical narrowing
Echo showing preserved EF. No other major abnormalities.
Neuro recommended to continue aspirin and atorvastatin at discharge
PT evaluated and appropriate for home discharge
2. Urinary retention
Degroot catheter removed and able to void without any difficulty
Postvoid residual of less than 10 mL
Discharge home
Original Note:
Today's Communication/Plan
-
.
Assessment / Plan
Assessment / Plan
Patient is a 74 y/o male past medical history of hyperlipidemia, bipolar disorder and bladder cancer who presents with left sided numbness and weakness.
Acute left-sided weakness secondary to stroke
-Currently in ICU post TNK
� Consult nephrology. Appreciate inputs
� MRI brain shows no acute intracranial hemorrhage. No evidence of restricted diffusion. Sequela of small vessel ischemic disease right greater than left maxillary sinus mucosal thickening with right-sided mucous retention cyst
� Continue TNK precautions
-Echo 10/31 shows LV ejection fraction is 60 to 65%. Normal left ventricular size. No regional wall abnormalities seen. IVC is of normal size and demonstrates normal respiratory variation. Intra-arterial septum intact without shunting.
� Allow permissive hypertension with labetalol for BP greater than 180/105
� FLP and hemoglobin A1c checked. Atorvastatin 80 mg started
� Patient started on baby aspirin.
-Today neurology cleared patient for discharge
Urinary retention
� Continue bladder scans with as needed straight cath
-If patient fails voiding trial today, sent home with Degroot. Follow-up with urology outpatient
-Continue tamsulosin and finasteride
Hyperlipidemia
� Increase statin to Lipitor 80 mg
Anxiety/bipolar disorder
� Continue clonazepam, escitalopram
GERD
� Continue Protonix
Essential tremor
� Continue gabapentin, primidone, lamotrigine
Bladder cancer
� Status post TURBT
-Continue mirtazapine
� Currently receiving intravesicular chemo
Recent sinus sx
- Administer saline spray BID for relief
DVT prophylaxis�SCDs
Full code
Anticipated Discharge: Today
Subjective/Interval History
-
Date of Service: November 01, 2023
Patient reports feeling significantly better today, back at baseline. No ongoing facial numbness. He reports that as of this morning he still has not been able to urinate on his known, probably because he states he is still bedbound. He reports
no headaches, chest pain, shortness of breath, abdominal pain, numbness or tingling in extremities
Objective Data
-
Labs:
Laboratory Results
11/01/23
03:05
WBC 5.6
Hgb 12.3 L
Hct 34.0 L
Plt Count 160
Sodium 137
Potassium 4.2
Chloride 106
Carbon Dioxide 26
BUN 14
Creatinine 0.8
Glucose 106 H
Calcium 9.4
Vital Signs:
Vital Signs
Temp Pulse Resp BP Pulse Ox
96.7 F L 59 16 116/58 94
11/01/23 07:13 11/01/23 07:00 11/01/23 06:00 11/01/23 06:00 11/01/23 06:00
I&O
10/31/23 11/01/23 11/02/23
06:59 06:59 06:59
Intake Total 480 / 480
Output Total 700 / 700 2665 / 2665
Balance -700 / -700 -2185 / -2185
Review of Systems
-
History Source: Patient
Constitutional: Reports No Symptoms
EENT: Reports No Symptoms Reported
Respiratory: Reports No Symptoms
Cardiac: Reports No Symptoms
Abdomen/GI: Reports No Symptoms
Breast: Reports No Symptoms
Genitourinary: Reports Difficulty Voiding
Musculoskeletal: Reports No Symptoms
Skin: Reports No Symptoms
Neuro: Reports No Symptoms
Physical Exam
-
General: Well Developed, Well Nourished, No Apparent Distress and Comfortable
HEENT: Normocephalic and Atraumatic
Respiratory: Clear to Auscultation
Cardiac: Regular Rhythm and S1/S2
GI: Soft, Nontender and Nondistended
Musculoskeletal: No Clubbing and No Cyanosis
Skin: Warm and Dry
Neuro: Awake, Alert, Oriented, No Motor Deficits, Central Nerve's Intact and No Sensory Deficits
Psych: Calm
Data Reviewed
-
MRI: Report Reviewed by me and Discussed with Physician
Medical Tests (Nuc Med, Echo etc): Report Reviewed by me
Labs: Labs Reviewed by me
Old Records: Reviewed
[2023-11-01] MEDS: NEURONTIN 400 MG PO ×2 (08:17→13:29)
[2023-11-01] MEDS: FLOMAX 0.4 MG PO (08:17)
[2023-11-01] MEDS: KLONOPIN 0.25 MG PO (08:17)
[2023-11-01] MEDS: PROTONIX 40 MG PO (08:17)
[2023-11-01] MEDS: LEXAPRO 10 MG PO (08:17)
[2023-11-01] MEDS: PROSCAR 5 MG PO (08:17)
--- NOTE | 2023-11-01 08:32 | PTCARENOTE ---
report received, hand off NIH completed. patient denies pain, assessments per work list. OOB to chair with standby assist. Degroot draining clear urine. monitor sinus/sinus delfin. call jean-baptiste in reach
--- NOTE | 2023-11-01 08:52 | W.PN.INTV ---
Today's Communication / Plan
Recommendations
Up OOB as tolerated
Aspirin as per neurology
High intensity statin
Goal LDL <70
PT/OT � no needs at this time
Diet as per SOFTWARE SUPPORT ENGINEER
Degroot removal with voiding trial; check PVR if voids, otherwise check bladder scan in 4-6 hours if inadequate urine output
Patient is stable for downgrade [facility] and may even be going home today assuming that his Degroot is removed and he is able to void appropriately. Osteologist/Pulmonary service will now sign off. Please reconsult if there are any
additional questions/concerns, or if patient's respiratory status deteriorates.
Assessment
-
Assessment: 78-year-old male non-smoker with a past medical history of bladder cancer on monthly intravesicular chemotherapy managed at [facility], anxiety, history of bipolar disorder, GERD, BPH, hyperlipidemia, essential tremor, and
history of colon polyps who presents with left-sided facial numbness with left facial droop beginning at 9 PM prior to arrival. 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 After coming home he felt
tired/strange so started to do things in his office when he suddenly became unstable and lay down. His face felt flushed with [id number] on the left side and he called his who noticed a left-sided facial droop and difficulty opening left
eye. He denies having any arm or leg weakness. No headache. EMS called. In the ER patient was afebrile to 98.6 �F, pulse rate 77, breathing at 18 breaths/min, BP 136/74 and saturating 95% on room air. Labs showed WBC 4.8, Hb 13.9, INR 1.03,
glucose 113, UA negative for signs of UTI. Code stroke called and CT head showed no acute intracranial hemorrhage. CTA head/neck obtained showing no LVO, with bilateral intracranial ICA atherosclerosis without significant stenosis, with
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 CTA neck showed no significant stenosis. Neurology consulted and given concern of acute ischemic stroke, TNK
was administered. Patient transferred to the ICU for further care and critical care services consulted for additional management/recommendations.
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
[facility], history of bipolar disorder
Impression:
#Suspected right sided acute ischemic stroke s/p TNK (administered 10/30/2023 at 2245) --> stroke ruled out via MRI this AM
#Mild anemia (Hb 12.3 today)
#Leukopenia (WBC: 4.6 yesterday) - now resolved
#Acute urinary retention s/p Degroot (placed 10/31/2023)
#GERD
#Anxiety
#Bladder cancer s/p TURBT on monthly intravesicular chemotherapy managed at [facility]
Plan:
- Ok to change neurochecks to q4hr; NIHSS; maintain BP <180/105
- Neurology consulted and recommendations appreciated
- Stat CT head for any change in neurochecks or clinical status
- MRI brain this AM is negative for acute CVA or restricted diffusion
- Aspirin 81 mg start today; recommend outpatient neurology follow up
- Maintain euglycemia with goal BG 140�180
- SOFTWARE SUPPORT ENGINEER evaluated patient, and they recommend regular texture solids with thin liquids
- High intensity statin with goal LDL <70 (LDL: 88 from yesterday)
- PT/OT -no PT or OT needs
- Continue with primidone, Neurontin, Lamictal and Remeron (all home meds)
- Remove Degroot catheter with voiding trial; check bladder scan if inadequate urine output in 4-6 hours
- If patient does void, check postvoid residual, notify provider if >150-200 cc
- Maintain SpO2 >92-94%
- prn nebulized bronchodilators
- Maintain MAP>65
- Trend Hb and transfuse if needed to maintain Hb >7 g/dL; keep platelets >100k
- Replete electrolytes with K>4, Mg>2
- Incentive spirometer
- DVT ppx
Code status: Full code
Patient is stable for downgrade out of ICU to tele and may even be going home today assuming that his Degroot is removed and he is able to void appropriately. Osteologist/Pulmonary service will now sign off. Thank you for allowing us to be involved
in the care of this patient. Please reconsult if there are any additional questions/concerns, or if patient's respiratory status deteriorates.
Total time spent today was 55 minutes for this encounter. Time includes reviewing laboratory test/imaging results, reviewing pertinent medical records, obtaining and reviewing medical history, performing an appropriate exam, ordering medications,
tests and procedures. Time also includes documentation of this encounter, coordinating patient care and communicating with other healthcare professionals. Total time does not include separately billed tests performed on this date of service.
Data:
Brain MRI 11/01/2023:
No acute intracranial hemorrhage. There is no evidence for restricted diffusion.
Sequelae of mild small vessel ischemic disease.
Right greater the left maxillary sinus mucosal thickening with right-sided mucous retention cysts.
CT head 10/30/2023:
No acute intracranial hemorrhage.
Sequelae of chronic small vessel ischemic disease.
Postoperative changes of the paranasal sinuses with mild/moderate residual mucosal thickening.
CTA head/neck 10/30/2023:
CTA Head: No large vessel occlusion. Atherosclerotic calcifications of the bilateral intracranial ICAs without significant stenosis. Nonopacification of the right transverse sinus with diminutive appearance of the right sigmoid sinus possibly due to
agenesis/hypoplasia.
CTA Neck: Atherosclerotic calcifications of the bilateral carotid bifurcations without significant stenosis.
CXR 10/31/2023:
Low lung volumes with mild elevation of the left hemidiaphragm and bibasilar atelectasis.
Subjective Dataa
Subjective Data
Date of Service:
Date of Service: November 01, 2023
Chief Complaint: Osteologist Follow Up
Subjective:
Patient seen and evaluated today at bedside. Left-sided facial numbness/tingling as well as difficulty opening left eye has completely normalized. He denies shortness of breath, chest pain. Family members including and daughter at bedside.
All questions were answered. Degroot removed this morning at around 11:50 AM (placed yesterday due to urinary retention). He is eager to go home. Brain MRI obtained this morning shows no acute intracranial hemorrhage or restricted diffusion.
Review of Systems
General: Other (Negative unless mentioned above)
Objective Data
Data Reviewed
Vital Signs / I&O / Oxygen:
Vital Signs
Temp Pulse Resp BP Pulse Ox
96.7 F L 61 12 107/68 96
11/01/23 07:13 11/01/23 08:16 11/01/23 08:16 11/01/23 08:16 11/01/23 08:30
Intake and Output
10/31/23 11/01/23 11/02/23
06:59 06:59 06:59
Intake Total 480 / 480 600 / 600
Output Total 700 / 700 2665 / 2665
Balance -700 / -700 -2185 / -2185 600 / 600
SaO2 96
Physical Exam
General: Respiratory Distress (Negative), Comfortable and Chills (negative)
HEENT: Normocephalic and Anicteric
Cardiovascular: S1-S2 and Peripheral Edema (Negative)
Respiratory: Wheeze (Negative), Crackles (Negative), Rhonchi (Negative), Non-Labored Respirations and Other (Reduced breath sounds bilaterally)
GI: Soft, Non Distended, Non Tender and Normal Bowel Sounds
Neurology: AO x 3, No Motor Deficits (Talent Rep strength 5/5 in both hands; foot plantar-/dorsi-flexion: 5/5 bilaterally), Tremors (Negative) and Other (Minimal flattening of left nasolabial fold; No sensory deficits to light touch in arms, legs or face;
normal tongue protrusion and lateral movement; normal shoulder shrug; pupils 3-4 mm and brisk)
Skin: Warm, Dry and Jaundice (negative)
Labs/Micro/Reports
Lab Data
11/01/23 03:05
11/01/23 03:05
[2023-11-01] MEDS: LOW STRENGTH ASPIRIN 81 MG PO (09:06)
--- NOTE | 2023-11-01 10:44 | PTCARENOTE ---
patient ordered discharge today once cleared by PT. mcguire removed, patient instructed on need for voiding trial prior to discharge
--- NOTE | 2023-11-01 12:13 | PTOTSP ---
Pt reports no deficits today. He is independent with ambulation without need for any assistive devices and is able to climb steps without difficulty. No PT needs were identified. PT will sign off.
--- NOTE | 2023-11-01 12:49 | W.PN.NEURO.1 ---
Documented by User: Miladys Blanc NP 11/01/23 13:21
Today's Communication / Plan
-
.
Neuro Assessment/Plan
Assessment
This is a 78-year-old right-handed male who presented to on 10/30/23 with report of sudden onset left-sided weakness, left facial drooping, and left face/hand paresthesias at 2100. CT head and CTA head/neck were negative for any acute
abnormalities. Patient received IV TNK on 10/30/23 at 2245.
-CTA head/neck 10/30/23: No large vessel occlusion. Atherosclerotic calcifications of the bilateral intracranial ICAs without significant stenosis. Non-opacification of the right transverse sinus with diminutive appearance of the right sigmoid sinus
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 CTA Neck: Atherosclerotic calcifications of the bilateral carotid bifurcations without significant stenosis.
-MRI brain 11/01/23: No acute intracranial hemorrhage. There is no evidence for restricted diffusion. Sequelae of mild small vessel ischemic disease. Right greater the left maxillary sinus mucosal thickening with right-sided mucous retention cysts.
-TTE 11/01/23: EF 60-65%. Atria within normal size.
I. Ischemic right hemisphere stroke producing left-sided symptoms, s/p TNK on 10/30/23.
II. Migraine aura possible given family history, but less likely given absence of history of migraines in the patient.
Plan
-MRI brain negative for hemorrhage, okay to initiate aspirin 81mg daily indefinitely today.
-Goal normotension.
-Consider outpatient short term cardiac monitoring.
-LDL goal <70. LDL is 88. Home simvastatin changed to atorvastatin 80mg daily.
-Goal normoglycemia, hbA1c is 5.7.
-NIHSS and neurological checks per unit guidelines.
-Provide patient with stroke education packet.
-PT/OT/ST evaluations.
-DVT prophylaxis.
-Eventual consideration for MRI guided-focused ultrasound for essential tremor.
-Continue Primidone, Lamotrigine, Gabapentin for control over tremor.
-Patient should follow-up with his usual neurologist or Neurologist as an outpatient, may see the FRUIT PICKER or one of the physicians.
Subjective/Objective
Subjective Data
Date of Service: November 01, 2023
No acute events overnight. Patient reports feeling at his baseline today. He reports that his left-sided symptoms resolved completely mid-morning yesterday (10/31/23). He denies any headache, dizziness, vision changes, speech/swallow difficulty,
numbness, weakness, chest pain pain, palpitations, and shortness of breath.
Objective Data
Vital Signs
Temp Pulse Resp BP Pulse Ox
96.9 F L 59 15 125/66 96
11/01/23 11:03 11/01/23 11:34 11/01/23 11:34 11/01/23 11:34 11/01/23 12:01
Lab Results
11/01/23 03:05
11/01/23 03:05
PT 13.5 Sec (11.4-14.6) 10/31/23 03:58
INR 1.05 10/31/23 03:58
APTT 29.2 Sec (23.4-35.0) 10/31/23 03:58
Sodium 137 mmol/L (135-145) 11/01/23 03:05
Potassium 4.2 mmol/L (3.5-5.1) 11/01/23 03:05
BUN 14 mg/dl (9-20) 11/01/23 03:05
Glucose 106 mg/dl (70-99) H 11/01/23 03:05
Calcium 9.4 mg/dl (8.4-10.2) 11/01/23 03:05
Phosphorus 4.2 mg/dl (2.5-4.5) 10/31/23 03:58
LDL Cholesterol, Calc 88 mg/dl 10/31/23 03:58
Vitamin B12 657 pg/ml (239-931) 10/31/23 03:58
Patient Allergies
sertraline [From Zoloft] Adverse Reaction (Verified 10/30/23 23:18)
Increased Tremors / EPS
LDL Level: Statin dose adjusted
Review of Systems
-
History Source: Patient
EENT: Negative Blurry Vision, Decreased Vision or Swallowing Difficulty
Respiratory: Negative Cough or Trouble Breathing
Cardiac: Negative Chest Pain or Palpitations
Abdomen/GI: Negative Nausea
Neuro: Negative Dizzy, Headache, Weakness, Numbness, Ataxia, Tremors or Speech Problem
Physical Exam
-
General: Well Developed, Well Nourished and No Apparent Distress
Eyes: No Ptosis and PERRLA
HEENT: Normocephalic and Atraumatic
Neck: Full Range of Motion
Respiratory: No Dyspnea
GI: Non-distended
Extremities: No Clubbing, No Cyanosis and No Edema
Psych: Unremarkable
Extended Neurological Exam
Mood & Affect: Mood Unremarkable and Affect Unremarkable
Attention Span & Concentration: Awake, Alert and Interactive
Memory: Unremarkable (AAOx3) and Able to Recall
Tremor: Hand Tremor Absent and Head Tremor Absent
Involuntary Movement: None
Speech: Quality Unremarkable, Quantity Unremarkable and Rate of Production Unremarkable
Cranial Nerve II: Left Eye: Pupillary Reactivity Unremarkable, Pupillary Size Unremarkable and Visual Kwok Intact
Cranial Nerve II: Right Eye: Pupillary Reactivity Unremarkable, Pupillary Size Unremarkable and Visual Kwok Intact
Cranial Nerves III, IV, : Extraocular Movement: Extraocular Movement Full in all Directions
Cranial Nerve V: Facial Sensation: Intact to Light Touch
Cranial Nerve VII: Facial Symmetry: Normal Facial Symmetry
Cranial Nerve VIII: Hearing: Unremarkable Hearing to Normal Conversational Volume
Cranial Nerves IX, X: Palate Movement: Palate Elevation Symmetric
Cranial Nerve XI: Shoulder Shrug: Unremarkable
Cranial Nerve XII: Tongue Protusion: Midline
Muscle Strength, Overall: Full Throughout
Pronator Drift: No Drift in Upper Extremities and No Drift in Lower Extremities
Touch Sensation: Double Simultaneous Stimulation Unremarkable
Coordination: [id number] Testing Unremarkable
Modified Pawnee Score (MRS)
-
Modified Pawnee Scale (mRS): No symptoms
Score: 0
Data Reviewed
-
CT-A: Report Reviewed and Image Reviewed
CT Head: Report Reviewed and Image Reviewed
MRI Head: Report Reviewed and Image Reviewed
Labs: Report Reviewed
Lipid Profile: Report Reviewed
HgbA1C: Report Reviewed
Reviewed with: Physician and Family
Medications
-
Active Medications
Generic Name Dose Route Start Last Admin
Trade Name Freq PRN Reason Stop Dose Admin
Acetaminophen 650 mg 10/31/23 00:22
Acetaminophen 325 Mg Tablet PO 11/28/23 00:21
Q4HPRN PRN
RODRIGUEZ, mild pain, or temp >100.4F
Aspirin 81 mg 11/01/23 09:00 11/01/23 09:06
Aspirin 81 Mg Chewable Tablet PO 11/29/23 08:59 81 mg
DAILY BRANDY Administration
Atorvastatin Calcium 80 mg 10/31/23 18:00 10/31/23 17:26
Atorvastatin (Lipitor) 80 Mg Tablet PO 11/28/23 17:59 80 mg
QPM BRANDY Administration
Clonazepam 0.25 mg 10/31/23 08:00 11/01/23 08:17
Clonazepam 0.5 Mg Tablet PO 11/28/23 07:59 0.25 mg
BID BRANDY Administration
Escitalopram Oxalate 10 mg 10/31/23 08:00 11/01/23 08:17
Escitalopram 10 Mg Tablet PO 11/28/23 07:59 10 mg
DAILY BRANDY Administration
Finasteride 5 mg 10/31/23 08:00 11/01/23 08:17
Finasteride 5 Mg Tablet PO 11/28/23 07:59 5 mg
DAILY BRANDY Administration
Gabapentin 400 mg 10/31/23 08:00 11/01/23 08:17
Gabapentin 400 Mg Capsule PO 11/28/23 07:59 400 mg
QID BRANDY Administration
Labetalol HCl 10 mg 10/31/23 00:22
Labetalol Hcl 5 Mg/1 Ml (20 Mg/4 Ml) Injection IV 11/28/23 00:21
Q6HPRN PRN
SBP >180 or DBP>105
Lamotrigine 150 mg 10/31/23 22:00 10/31/23 20:59
Lamotrigine 100 Mg Tablet PO 11/28/23 21:59 150 mg
HS BRANDY Administration
Mirtazapine 15 mg 10/31/23 22:00 10/31/23 20:59
Mirtazapine 15 Mg Regular Release Tablet PO 11/28/23 21:59 15 mg
HS BRANDY Administration
Pantoprazole Sodium 40 mg 10/31/23 08:00 11/01/23 08:17
Pantoprazole 40 Mg Delayed Release Tablet PO 11/28/23 07:59 40 mg
DAILY BRANDY Administration
Primidone 250 mg 10/31/23 22:00 10/31/23 20:59
Primidone 250 Mg Tablet PO 11/28/23 21:59 250 mg
HS BARNDY Administration
Sodium Chloride 0 flush 10/30/23 23:00 10/30/23 23:08
Sodium Chloride 0.9% (Flush) Syringe IV 11/27/23 22:59 1 flush
PER PROTOCOL BRANDY Administration
Sodium Chloride 2 sprays 10/31/23 09:14
Sodium Chloride 0.65% Nasal [place] 45 Ml Bottle NASAL 11/28/23 09:13
BIDPRN PRN
nasal sx
Tamsulosin HCl 0.4 mg 10/31/23 08:00 11/01/23 08:17
Tamsulosin 0.4 Mg Capsule PO 11/28/23 07:59 0.4 mg
BID BRANDY Administration
Home Medications
�Medication �Instructions �Recorded
cholecalciferol (vitamin D3) 25 25 mcg PO DAILY Supplement 10/30/23
mcg (1,000 unit) tablet (Vitamin
D3)
clonazepam 0.5 mg tablet 0.25 mg PO BID Anxiety 10/30/23
escitalopram oxalate 10 mg tablet 10 mg PO DAILY Depression 10/30/23
finasteride 5 mg tablet 5 mg PO DAILY BPH 10/30/23
fluticasone propionate 50 2 spray intranasal Q12H Allergies 10/30/23
mcg/actuation nasal
spray,suspension
gabapentin 400 mg capsule 400 mg PO QID Neurological 10/30/23
Condition
lamotrigine 200 mg tablet 200 mg PO HS Seizures 10/30/23
mirtazapine 15 mg tablet 15 mg PO HS Depression 10/30/23
multivitamin 1 tab PO DAILY Supplement 10/30/23
omeprazole 40 mg capsule,delayed 40 mg PO DAILY Gastrointestinal 10/30/23
release Issue
primidone 250 mg tablet 250 mg PO HS Seizures 10/30/23
simvastatin 20 mg tablet 20 mg PO HS High Cholesterol 10/30/23
tamsulosin 0.4 mg capsule 0.4 mg PO BID Urinary Issue 10/30/23
aspirin 81 mg chewable tablet 81 mg PO DAILY #30 tabs 11/01/23
atorvastatin 80 mg tablet 80 mg PO QPM #30 tabs 11/01/23
NIH Stroke Score
Subsequent NIH Scale
Date of Subsequent NIH Scale: 11/01/23
Time of Subsequent NIH Scale: 10:15
NIH Stroke Score
Level of Consciousness: 0 - Alert
LOC Questions: 0-Answers both correctly
LOC Commands: 0-Performs both correctly
Best Horizontal Gaze: 0-Normal
Visual Kwok: 0=Normal, no visual loss
Facial Palsy: 0=Normal, symmetrical
Motor - Right Arm: 0=No drift 10 seconds
Motor - Left Arm: 0=No drift 10 seconds
Motor - Right Le-No drift 5 seconds
Motor - Left Le-No drift 5 seconds
Limb Ataxia: 0-Absent
Sensation: 0-Normal
Best Language: 0-No aphasia
Dysarthria: 0-Normal
Extinction and Inattention: 0-No abnormality
Total Score:: 0
Modified Pawnee (mRS) Score
Modified [place]awnee Scale (mRS): No symptoms
Score: 0

Documented by User: Keith Jacob MD 11/03/23 21:48
Today's Communication / Plan
-
78-year-old right-handed male who was admitted to on 10/30/23 with report of sudden onset left facial drooping, and left-sided weakness with face/hand paresthesias at 2100. CT head and CTA head/neck were negative for any acute abnormalities.
Patient received IV TNK on 10/30/23 at 2245 with resolution of symptoms
PLAN: Continue Ecasa
BP management
Lipitor 80
May dc home with current home meds for tremors
Modified Garry Score (MRS)
-
Score: 0
NIH Stroke Score
NIH Stroke Score
Total Score:: 0
Modified Pawnee (mRS) Score
Score: 0
--- NOTE | 2023-11-01 13:03 | CM ---
CM following re: discharge planning.
Reviewed pt's chart, met with pt and pt's spouse at bedside.
Discharge order noted. Both pt and his spouse are aware,expressed their agreement with discharge. IMM reviewed, placed on chart, pt has a copy.
PT, Ot, ST evaluations noted - pt has no skilled needs.
D/C plan: home no needs. Spouse to transport.
--- NOTE | 2023-11-01 14:28 | W.DCSUMMARY ---
Documented by User: Lalit Parnell DO, Resident 11/01/23 14:34
Discharge Summary
Discharge Data
Date of Admission: 10/30/23
Date of Discharge: 11/01/23
Total time spent discharging patient (in min): 30
-
Pending Results: No
Hospital Course
Patient is a 74-year-old male with past medical history of hyperlipidemia, bipolar disorder, bladder cancer, GERD, essential tremor and recent sinus surgery presenting to the ED to ED with acute left-sided weakness secondary to possible stroke or
TIA. Patient was started on TNK in the ED and admitted to the ICU. A few hours after TNK administration, patient reported resolved weakness on left side minus partial facial ongoing numbness. By 10/31 morning facial numbness also resolved. MRI
brain showed no acute intracranial hemorrhage. No evidence of restricted diffusion. Sequela of small ischemic vessel disease with right greater than left maxillary sinus mucosal thickening with right-sided mucous retention cyst. Echo showed left
ejection fraction of 60 to 65%. Normal left ventricular size. No regional wall abnormality seen. IVC is of normal size and demonstrates normal respiratory variation. Interarterial septum intact without shunting. Permissive hypertension with
labetalol for BP greater than 180/105. Patient was started on atorvastatin 80 mg based on lipid panel. Q1H neurochecks completed. After procedure patient reported urinary retention. Needed bladder scans with straight cath.
Acute left-sided weakness secondary to stroke or TIA
� MRI brain shows no acute intracranial hemorrhage. No evidence of restricted diffusion. Sequela of small vessel ischemic disease right greater than left maxillary sinus mucosal thickening with right-sided mucous retention cyst
� Continue TNK precautions
-Echo 10/31 shows LV ejection fraction is 60 to 65%. Normal left ventricular size. No regional wall abnormalities seen. IVC is of normal size and demonstrates normal respiratory variation. Intra-arterial septum intact without shunting.
� Atorvastatin 80 mg and baby aspirin started
- Follow-up with PCP
Urinary retention
-If patient fails voiding trial today, sent home with [place]. Follow-up with urology outpatient
-Continue tamsulosin and finasteride
Hyperlipidemia
� Increase statin to Lipitor 80 mg
Anxiety/bipolar disorder
� Continue clonazepam, escitalopram
GERD
� Continue Protonix
Essential tremor
� Continue gabapentin, primidone, lamotrigine
Bladder cancer
� Status post TURBT, currently receiving intravesicular chemo
-Continue mirtazapine
Recent sinus sx
- Administer saline spray BID for relief
Discharge Plan
-
Patient Disposition: Home (Routine Discharge)
Discharge Diagnosis/Procedures: Left sided weakness, presumed TIA
Condition: Fair
Diet: Low Fat and 2 Gram Sodium
Activity: As tolerated
Driving Restrictions: As prior to admission
Bathing Restrictions: OK to Shower
Referrals:
Baldemar Ralph MD [Family Provider] - in one week
Aj Birmingham MD [Active] -
Additional Discharge Medication Instructions: Stop simvastatin
Prescriptions:
New
atorvastatin 80 mg Tablet
80 mg PO QPM Qty: 30 2RF
aspirin 81 mg Tablet,Chewable
81 mg PO DAILY Qty: 30 0RF
Continued
multivitamin Tablet
1 tab PO DAILY
lamotrigine 200 mg Tablet
200 mg PO HS
gabapentin 400 mg Capsule
400 mg PO QID
omeprazole 40 mg Capsule,Delayed Release(Dr/Ec)
40 mg PO DAILY
primidone 250 mg Tablet
250 mg PO HS
mirtazapine 15 mg Tablet
15 mg PO HS
clonazepam 0.5 mg Tablet
0.25 mg PO BID
tamsulosin 0.4 mg Capsule
0.4 mg PO BID
fluticasone propionate 50 mcg/actuation [place],Suspension
2 spray INTRANASAL Q12H
finasteride 5 mg Tablet
5 mg PO DAILY
escitalopram oxalate 10 mg Tablet
10 mg PO DAILY
cholecalciferol (vitamin D3) [Vitamin D3] 25 mcg (1,000 unit) Tablet
25 mcg PO DAILY
Discontinued
simvastatin 20 mg Tablet
20 mg PO HS
Discharge Orders:
Discharge Patient (As Directed); Ordered 11/01/23
Ordered By: Rudy Rosenbaum
Discharge Date and Time
Discharge Date/Time: 11/01/23 14:20
Print Language: FIJIAN

Documented by User: Rudy Rosenbaum MD 11/04/23 07:56
Discharge Summary
Discharge Data
Date of Admission: 10/30/23
Date of Discharge: 11/04/23
Total time spent discharging patient (in min): 35
Discharge Plan
-
Patient Disposition: Home (Routine Discharge)
Discharge Diagnosis/Procedures: Left sided weakness, presumed TIA
Condition: Fair
Diet: Low Fat and 2 Gram Sodium
Activity: As tolerated
Driving Restrictions: As prior to admission
Bathing Restrictions: OK to Shower
Referrals:
Baldemar Ralph MD [Family Provider] - in one week
Aj Birmingham MD [Active] -
Additional Discharge Medication Instructions: Stop simvastatin
Prescriptions:
New
atorvastatin 80 mg Tablet
80 mg PO QPM Qty: 30 2RF
aspirin 81 mg Tablet,Chewable
81 mg PO DAILY Qty: 30 0RF
Continued
multivitamin Tablet
1 tab PO DAILY
lamotrigine 200 mg Tablet
200 mg PO HS
gabapentin 400 mg Capsule
400 mg PO QID
omeprazole 40 mg Capsule,Delayed Release(Dr/Ec)
40 mg PO DAILY
primidone 250 mg Tablet
250 mg PO HS
mirtazapine 15 mg Tablet
15 mg PO HS
clonazepam 0.5 mg Tablet
0.25 mg PO BID
tamsulosin 0.4 mg Capsule
0.4 mg PO BID
fluticasone propionate 50 mcg/actuation [place],Suspension
2 spray INTRANASAL Q12H
finasteride 5 mg Tablet
5 mg PO DAILY
escitalopram oxalate 10 mg Tablet
10 mg PO DAILY
cholecalciferol (vitamin D3) [Vitamin D3] 25 mcg (1,000 unit) Tablet
25 mcg PO DAILY
Discontinued
simvastatin 20 mg Tablet
20 mg PO HS
Discharge Orders:
Discharge Patient (As Directed); Ordered 11/01/23
Ordered By: Rudy Rosenbaum
Discharge Date and Time
Discharge Date/Time: 11/01/23 14:20
Print Language: FIJIAN
[2023-11-01 20:33] LABS: Hepatitis C Antibody Negative (Negative)
== END 2023-11-01 14:20 | disposition home or self-care (01) | DRG 63 ==
LOC: ICU 23:14
PROVIDERS: Family Medicine; Physician Assistant Medical; ADMITTING PHYSICIAN Internal Medicine; ATTENDING PHYSICIAN Hospitalist; CONSULT PHYSICIAN Internal Medicine Critical Care Medicine; CONSULT PHYSICIAN Psychiatry & Neurology Neurology; EMERGENCY PHYSICIAN Emergency Medicine; FAMILY PHYSICIAN Internal Medicine
PROC: 3E04317 Introduction of Other Thrombolytic into Central Vein, Percutaneous Approach (ICD-10-PCS; 2023-10-30)
DX: G45.9 Transient cerebral ischemic attack, unspecified (principal); C67.9 Malignant neoplasm of bladder, unspecified; F31.9 Bipolar disorder, unspecified; D72.819 Decreased white blood cell count, unspecified; R29.810 Facial weakness; R20.0 Anesthesia of skin; R29.700 NIHSS score 0; E78.5 Hyperlipidemia, unspecified; K31.84 Gastroparesis; F41.9 Anxiety disorder, unspecified; K21.9 Gastro-esophageal reflux disease without esophagitis; G25.0 Essential tremor; N40.1 Benign prostatic hyperplasia with lower urinary tract symptoms; R33.8 Other retention of urine; D64.9 Anemia, unspecified; Z79.899 Other long term (current) drug therapy; Z86.010 Personal history of colon polyps; Z87.19 Personal history of other diseases of the digestive system; Z90.49 Acquired absence of other specified parts of digestive tract
CPT/HCPCS: 70450; 70496; 70498; 70551; 71046; 80048; 80053; 80061; 81003; 82607; 82962; 83036; 83735; 84100; 84443; 85025; 85027; 85610; 85652; 85730; 86803; 92523; 92526; 92610; 93005; 93306; 96374; 97163; 97167; 99291; J3101; Q9967

== ENCOUNTER → 2023-12-02 10:18 | Outpatient (REF) | payer MEDICARE, SELFPAY | LOC: RCS 10:18 | PROVIDERS: ATTENDING PHYSICIAN Psychiatry & Neurology Neurology; FAMILY PHYSICIAN Internal Medicine | DX: G45.9 Transient cerebral ischemic attack, unspecified (principal) | CPT/HCPCS: 93225; 93226 ==

== ENCOUNTER → 2024-02-10 14:32 | Outpatient (REF) | payer MEDICARE, SELFPAY | LOC: HWRAD 14:32 | PROVIDERS: ATTENDING PHYSICIAN Otolaryngology; FAMILY PHYSICIAN Internal Medicine | DX: R05.3 Chronic cough (principal) | CPT/HCPCS: 71046 ==

== ENCOUNTER → 2024-03-15 11:20 | Outpatient (REF) | payer MEDICARE, SELFPAY | LOC: RAD 11:20 | PROVIDERS: ATTENDING PHYSICIAN Otolaryngology; FAMILY PHYSICIAN Internal Medicine | DX: R04.2 Hemoptysis (principal) | CPT/HCPCS: 71260; Q9967 ==

== ENCOUNTER → 2025-01-03 10:14 | Outpatient (REF) | payer MEDICARE, SELFPAY | LOC: WDC 10:14 | PROVIDERS: ATTENDING PHYSICIAN Advanced Practice Midwife; FAMILY PHYSICIAN Internal Medicine | DX: N63.10 Unspecified lump in the right breast, unspecified quadrant (principal) | CPT/HCPCS: 76642; 77062; 77066 ==